=== PATIENT | male | born 1975 | race Caucasian/White ===

== ENCOUNTER 2018-05-15 17:09 | Emergency (ER) | payer OTHER ==
[~2018-05-15] VITALS: Ht 175.3 cm; Wt 81.7 kg
[2018-05-15] MEDS ORDERED: Pepcid20 MG PO (17:57)
[2018-05-15] MEDS ORDERED: Prednisone50 MG PO (17:57)
[2018-05-15] MEDS ORDERED: BENADRYL25 MG PO (17:57)
[2018-05-15] MEDS ORDERED: EPIPEN 2-P0.3 MG/0.3 IM (17:58)
[2018-05-15] MEDS ORDERED: BENZ100A PO (18:23)
[2018-05-15] MEDS ORDERED: LEVO750 PO (18:23)
== END 2018-05-15 18:50 | disposition home or self-care (01) ==
LOC: ER 17:09
DX: J18.9 Pneumonia, unspecified organism (principal); Z79.52 Long term (current) use of systemic steroids; Z79.899 Other long term (current) drug therapy; F17.200 Nicotine dependence, unspecified, uncomplicated
CPT/HCPCS: 71046; 99283-25

== ENCOUNTER 2019-09-09 15:22 | Emergency (ER) | payer OTHER ==
[~2019-09-09] VITALS: Ht 177.8 cm; Wt 81.7 kg
[~2019-09-09 15:22] MED LIST: BENADRYL25 MG PO; BENZ100A PO; Benadryl25 MG PO; EPIPEN 2-P0.3 MG/0.3 IM; LEVO750 PO; Pepcid20 MG PO; Prednisone50 MG PO
== END 2019-09-09 17:41 | disposition home or self-care (01) ==
LOC: ER 15:22
DX: M79.671 Pain in right foot (principal); F17.210 Nicotine dependence, cigarettes, uncomplicated; Z87.01 Personal history of pneumonia (recurrent); Z91.018 Allergy to other foods; Z79.899 Other long term (current) drug therapy
CPT/HCPCS: 29515; 73610; 73630; 99283-25; L1906

== ENCOUNTER → 2020-03-10 | Outpatient (CLI) | payer OTHER | END | disposition home or self-care (01) | LOC: LAB SHORT 18:41 → LAB 18:41 | DX: M25.521 Pain in right elbow (principal) | CPT/HCPCS: 84550; 85651 ==

== ENCOUNTER 2023-01-16 17:32 | Emergency (ER) | payer OTHER ==
[~2023-01-16] VITALS: Ht 182.9 cm; Wt 79.4 kg
[2023-01-16] MEDS ORDERED: Robaxin750 MG PO (20:32)
[2023-01-16] MEDS ORDERED: LIDO700A20 TOP (20:32)
== END 2023-01-16 20:39 | disposition home or self-care (01) ==
LOC: ER 17:32
DX: M54.50 Low back pain, unspecified (principal); F17.210 Nicotine dependence, cigarettes, uncomplicated; Z79.899 Other long term (current) drug therapy
CPT/HCPCS: 96372; 99283-25; A9270; J1885

== ENCOUNTER → 2025-05-22 | Outpatient (CLI) | payer OTHER ==
[~2025-05-22] MED LIST changes: +LIDO700A20 TOP; +Robaxin750 MG PO
[2025-05-27 13:04] LABS: APTIMA MEDIA TYPE Urine; C. TRACHOMATIS BY TMA Positive (Negative); N. GONORRHOEAE BY TMA Negative (Negative); T. VAGINALIS BY TMA Negative (Negative)
== END | disposition home or self-care (01) ==
LOC: LAB SHORT 18:30 → LAB 18:30
PROVIDERS: Nurse Practitioner Family
DX: Z11.3 Encounter for screening for infections with a predominantly sexual mode of transmission (principal)
CPT/HCPCS: 87491; 87591; 87661